=== PATIENT | female | born 1950 | race Caucasian/White ===

== ENCOUNTER → 2016-12-17 | Outpatient (CLI) | payer MEDICARE ==
[~2016-12-17] MED LIST: ACET325T21 PO; ASPI-650 PO; BACL20TA PO; CEFU500T PO; DALF10TA PO; FLUO20TA25 PO; GABA300C10 PO; INDO50SU PO; LOSA1TAB17 PO; NALT5POW PO; OXYB5TAB7 PO; SULF1TAB24 PO
== END | disposition home or self-care (01) ==
LOC: CVU 13:55
PROVIDERS: ATTEND Nurse Practitioner
DX: M79.662 Pain in left lower leg (principal); M79.661 Pain in right lower leg; G35 Multiple sclerosis; M79.609 Pain in unspecified limb
CPT/HCPCS: 93922